=== PATIENT | male | born 2000 ===

== ENCOUNTER → 2024-12-09 | Outpatient (REF) | payer OTHER ==
[2024-12-09 09:57] LABS: SEMEN APPEARANCE OPAQUE (OPAQUE); SEMEN VISCOSITY LIQUID (LIQUID); SEMEN VOLUME 2.8 ml (2.0-5.0); SEMEN pH 8.5 (7.0-8.0); SPERM CONCENTRATION 97.9 M/ml (>=15.0); WBC CONCENTRATION <=1 M/ml (<=1 M/ml)
[2024-12-09 09:58] LABS: TOTAL PROGRESSIVE SPERM 108.6 M/Ejac.
== END ==
LOC: M LAB REF 09:52
PROVIDERS: ATTEND Physician Assistant
DX: N46.9 Male infertility, unspecified (principal)